=== PATIENT | male | born 1945 | race Caucasian/White ===

== ENCOUNTER → 2020-10-17 13:11 | Outpatient (BNVA) | payer MEDICARE, SELFPAY | PROVIDERS: PCP Family Medicine; Visit Provider Surgery | DX: L72.3 Sebaceous cyst (principal) | CPT/HCPCS: 99212 ==

== ENCOUNTER 2020-11-14 07:47 | Outpatient (REF) | payer MEDICARE, SELFPAY ==
[2020-11-14 07:54] VITALS: BMI 25.7
[2020-11-14 07:55] VITALS: BP 159/78; PULSE 60; RESP 16; TEMP 36.2; O2SAT 97
--- NOTE | 2020-11-14 07:58 | MHC.SHP ---
Pre-Procedural Eval Section A The patient is an INPATIENT: No Changes since office visit: Yes Patient answered all questions; No Cold of Flu in the past 2 weeks, No New Medical Problems and No Changes in Medication The History & Physical has been completed within 30 days and I have reviewed it.: Yes Section B Chief Complaint: Sebaceous cyst Allergies: Allergies Allergy/AdvReac Type Severity Reaction Status Date / Time No Known Allergies Allergy Unverified 02/08/20 15:51 [No Known Allergies*] Plan Diagnosis/Plan: Unchanged I have reviewed the history and physical and performed a pertinent physical examination on my patient. No changes have occurred unless specified.
--- NOTE | 2020-11-14 08:35 | W.PM.OPN ---
Operative Note Operative Note Date of Service: 11/14/20 Narrative: Preoperative diagnosis: Epidermal inclusion cyst right posterior neck Postoperative diagnosis: Same Procedure: Excision of epidermal inclusion cyst right posterior neck Surgeon: Irwin Mosqueda MD Labor Employment Associate: No physician Anesthesia: Local Indications for procedure: 75-year-old male patient with enlarging sebaceous cyst of the posterior right neck Operative findings: 2 cm sebaceous cyst without evidence of infection Specimen: Sebaceous cyst posterior right neck Estimated blood loss: 5 mL Complications: None Procedure details: Patient was brought to the minor surgery suite placed in a left lateral decubitus position. The site of surgery was confirmed by the patient and informed consent was confirmed. Skin was prepped with Betadine and draped in a sterile fashion. Local anesthesia consisting of lidocaine 1% with epinephrine was infiltrated around the sebaceous cyst. A transverse incision was then created with a scalpel. This carried out through subcutaneous tissue. Sharp dissection was then used to dissect around the cyst wall. The lesion was completely excised and sent to pathology for further examination. Hemostasis was assured using light pressure. Wounds were then irrigated and suctioned dry. Dermis was reapproximated using interrupted 3-0 Polysorb sutures. Skin was closed using interrupted 4-0 nylon sutures. Sterile dressings consisting of a 2 x 2 gauze and Tegaderm were then applied. The patient tolerated the procedure well. He was discharged to home in stable condition.
== END 2020-11-14 07:48 | disposition home or self-care (01) ==
LOC: HO.MS 07:47
PROVIDERS: PCP Family Medicine; Visit Provider Surgery
PROC: (CPT 11422; principal; 2020-11-14 08:00)
DX: L72.0 Epidermal cyst (principal); R89.9 Unspecified abnormal finding in specimens from other organs, systems and tissues; L98.9 Disorder of the skin and subcutaneous tissue, unspecified; I10 Essential (primary) hypertension; Z79.899 Other long term (current) drug therapy; Z85.46 Personal history of malignant neoplasm of prostate; Z87.891 Personal history of nicotine dependence
CPT/HCPCS: 11422; 12041; 88304

== ENCOUNTER → 2020-11-22 08:57 | Outpatient (BNVA) | payer MEDICARE, SELFPAY | PROVIDERS: PCP Family Medicine; Visit Provider Surgery | DX: Z48.817 Encounter for surgical aftercare following surgery on the skin and subcutaneous tissue (principal); Z87.2 Personal history of diseases of the skin and subcutaneous tissue | CPT/HCPCS: 99212 ==

== ENCOUNTER → 2021-09-18 07:38 | Outpatient (REF) | payer MEDICARE, SELFPAY ==
--- NOTE | 2021-09-18 07:42 | CA_ITS ---
Transthoracic Echocardiogram Patient (Last, First, Middle): Shmuel Cortez, Gender: Male Date of : 1945 Age: 76 Procedure Date: 09/18/2021 Procedure Type: Transthoracic Echocardiogram Location: OP Height: 182.88 cm Weight: 87.09 kg BSA: 2.09 m2 Heart Rate: bpm BP: 140 / 70 mmHg Certified Fire Investigator: ELIZA Referring MD: Kris Aguilera MD Symptoms: R01,1 NEW DIASTILIC MURMUR Study Quality: Fair ECG Rhythm: Sinus Conclusions: - The left ventricular systolic function is low normal. The visually estimated ejection fraction is between 50-55%. - There is mild to moderate aortic valve regurgitation. - There is mild dilatation of the sinuses of Valsalva measuring 4.37 cm and moderate dilatation of the ascending aorta measuring 4.60 cm. Findings Left Ventricle Normal left ventricular cavity size. There is mildly increased left ventricular wall thickness. The left ventricular systolic function is low normal. The visually estimated ejection fraction is between 50-55%. There is no evidence of regional wall motion abnormalities. Evidence suggests grade I (mild) diastolic dysfunction. Right Ventricle Normal right ventricular cavity size and systolic function. Atria The left atrium is mildly dilated. The right atrium is normal in size. Aortic Valve There is a normal trileaflet aortic valve. There is mild calcification of the aortic valve. There is no aortic valve stenosis. There is mild to moderate aortic valve regurgitation. Mitral Valve The mitral valve appears normal. There is trace mitral valve regurgitation. There is no mitral valve stenosis. Pulmonic Valve The pulmonic valve is likely normal. Tricuspid Valve Normal tricuspid valve structure. There is mild tricuspid valve regurgitation. The right ventricular systolic pressure is 35 mmHg. Top normal RVSP. Great Vessels The aortic arch is normal in size. There is mild dilatation of the sinuses of Valsalva measuring 4.37 cm and moderate dilatation of the ascending aorta measuring 4.60 cm. Venous The inferior vena cava is normal in size and collapses greater than 50% with inspiration. Pericardium/Pleural There is no evidence of pericardial effusion. Prior Study Comparison No prior study available for comparison. Measurements 2D Linear Measurements IVSd: 1.23 0.6-0.9/0.6-1.0 cm LVIDd: 4.92 3.9-5.3/4.2-5.9 cm LVIDd Index: 2.35 2.4-3.2/2.2-3.1 cm/m2 LVIDs: 3.76 2.0-3.6 cm LVPWd: 1.23 0.7-1.1 cm LA Diam: 4.10 2.7-3.8/3.0-4.0 cm LAIDs Index: 1.96 1.5-2.3 cm/m2 LV Mass: 294.17 67-162/88-224 g LV Mass Index: 140.75 43-95/49-115 g/m2 LVOT Diam: 2.40 3.0+(-)1.3 cm 2D Systolic Function EF 4C: 52.20 >55% EF 2C: 62.40 >55% EF BiP: 57.10 >55% Mitral Valve MV Pk E: 0.57 MV PK A: 0.67 MV Decel Time: 294.00 E/A: 0.80 E'Lateral: 4.90 E'Medial: 4.90 E/E' Med: 11.60 E/E' Lat: 11.60 PHT: 86.00 MVA PHT: 2.56 Decel [place]: 1.92 Aortic Valve AoV Pk Arnaldo: 1.71 AoV Mn Arnaldo: 1.01 AoV VTI: 0.39 AoV Pk Grad: 12.00 Aov Mn Grad: 5.00 RUDDY Cont.VTI: 3.51 LVOT LVOT Pk Arnaldo: 1.09 LVOT Mn Arnaldo: 0.74 LVOT VTI: 0.30 LVOT Pk Grad: 5.00 LVOT Mn Grad: 3.00 LVOT Diam: 2.40 LVOT Area: 4.52 Diastolic Function MV Pk E: 0.57 MV Pk A: 0.67 E/A: 0.80 E'Medial: 4.90 E/E' Med: 11.60 E' Laterial: 4.90 E/E' Lat: 11.60 Right Ventricle TAPSE (mm): 26.90 TVS' Arnaldo: 14.70 Tricuspid Valve TR Pk Arnaldo: 2.84 TR Pk Grad: 32.00 RA Press: 3.00 RVSP: 35.00 Great Vessels Aorta Sinus of Valsalva: 4.37 2.0-3.[address] Ridge: 3.54 1.7-3.4 cm Ao Asc: 4.60 2.1-3.4 cm Ao Arch: 3.10 Updated in Other Vendor System with Status of Final Lauri Velez MD electronically signed on 09/19/2021 4:52:41 PM with status of Final
== END ==
LOC: HO.CARD 07:38
PROVIDERS: PCP Family Medicine; Visit Provider Family Medicine
DX: R01.1 Cardiac murmur, unspecified (principal)
CPT/HCPCS: 93306

== ENCOUNTER 2022-01-06 16:38 | Outpatient (REF) | payer MEDICARE, SELFPAY ==
[2022-01-06 16:51] LABS: MANUAL DIFF FLAG NO
[2022-01-06 17:03] LABS: Basophils Percent Auto 0.4 % (0-2); Eosinophils Absolute Auto 0.4 X10*3/uL (0.0-0.4); Eosinophils Percent Auto 4.4 % (0-4); Hematocrit 39.8 % (42.0-52.0); Hemoglobin 13.6 g/dl (14.0-18.0); Imm Gran Abs Auto 0.03 X10*3/uL (0.00-0.03); Imm Gran Pct Auto 0.4 % (0.0-0.4); Lymphocytes Absolute Auto 1.4 X10*3/uL (1.2-4.9); Lymphocytes Percent Auto 16.5 % (20-40); Mean Corpuscular HGB Conc 34.2 g/dl (31.0-36.0); Mean Corpuscular Hemoglobin 31.6 pg (27.0-33.0); Mean Corpuscular Volume 92.3 fL (80.0-98.0); Mean Platelet Volume 9.4 fL (9.4-12.4); Monocytes Absolute Auto 0.9 X10*3/uL (0.1-1.2); Monocytes Percent Auto 10.9 % (2-11); Neutrophils Absolute Auto 5.7 x10*3/uL (2.0-8.3); Neutrophils Percent Auto 67.4 % (45-73); Platelet Count 241 X10*3/uL (160-400); Red Blood Count 4.31 X10*6/uL (4.60-5.80); Red Cell Distribution Width 15.2 % (11.0-16.0); White Blood Count 8.5 X10*3/uL (4.8-10.8)
[2022-01-06 17:40] LABS: Erythrocyte Sedimentation Rate 5 MM/HR (0-15)
== END 2022-01-06 16:39 | disposition home or self-care (01) ==
LOC: HO.LAB 16:38
PROVIDERS: PCP Family Medicine; Visit Provider Family Medicine
DX: K62.5 Hemorrhage of anus and rectum (principal); K52.9 Noninfective gastroenteritis and colitis, unspecified
CPT/HCPCS: 36415; 82378; 85025; 85652

== ENCOUNTER 2023-02-18 13:55 | Outpatient (REF) | payer MEDICARE, SELFPAY ==
--- NOTE | ~2023-02-18 | XR_ITS ---
EXAMINATION: XR LUMBOSACRAL SPINE CLINICAL INFORMATION: Lower back pain. COMPARISON: None available. TECHNIQUE: AP and lateral views of the lumbar spine and lateral view of the lumbosacral junction. FINDINGS: There is bony demineralization. At L2-L3, there is moderate disc space narrowing, with a 4 mm retrolisthesis. At L3-L4, there is mild posterior disc space narrowing and a 4 mm retrolisthesis. The remaining disc spaces are relatively well-maintained. No acute fracture or spondylolisthesis is seen. This multi-level thoracolumbar spondylosis. The posterior elements are intact. There is facet arthropathy at L5-S1. There are aortoiliac atherosclerotic calcifications. XR/XR lumbar spine 2-3V IMPRESSION: 1. There is moderate degenerative disc disease at L2-L3 and L3-L4. 2. No acute fracture or spondylolisthesis is seen. 3. There is multi-level thoracolumbar spondylosis. 4. There is facet arthropathy at L5-S1.
== END 2023-02-18 13:56 | disposition home or self-care (01) ==
LOC: HO.XRAY 13:55
PROVIDERS: PCP Family Medicine; Visit Provider Family Medicine
DX: M54.50 Low back pain, unspecified (principal)
CPT/HCPCS: 72100

== ENCOUNTER → 2023-10-21 09:57 | Outpatient (REF) | payer MEDICARE, SELFPAY ==
--- NOTE | 2023-10-21 10:00 | CA_ITS ---
Transthoracic Echocardiogram Patient (Last, First, Middle): Shmuel Cortez, Gender: Male Date of : 1945 Age: 78 Procedure Date: 10/21/2023 Procedure Type: Transthoracic Echocardiogram Location: OP Height: 182.88 cm Weight: 87.09 kg BSA: 2.09 m2 Heart Rate: bpm BP: 130 / 75 mmHg [employer] Operator: NAEL Referring MD: Kris Aguilera MD Symptoms: I35.1 NON RHEU AV INSUFF Study Quality: Adequate ECG Rhythm: Sinus Conclusions: - The left ventricular systolic function is normal. The calculated ejection fraction is 59% by biplane method. - No obvious valvular pathology seen on this study. - There is mild dilatation of the sinuses of Valsalva measuring 4.43 cm, moderate dilatation of the ascending aorta measuring 4.70 cm, and mild dilatation of the aortic arch measuring 4.20 cm. Findings Left Ventricle Normal left ventricular cavity size. There is mildly increased left ventricular wall thickness. The left ventricular systolic function is normal. The calculated ejection fraction is 59% by biplane method. There is no evidence of regional wall motion abnormalities. Diastolic function is normal for age. Right Ventricle Normal right ventricular cavity size and systolic function. Atria Mild biatrial enlargement. Aortic Valve There is mild calcification of the aortic valve. There is no aortic valve stenosis. There is mild aortic valve regurgitation. Mitral Valve The mitral valve appears normal. There is no mitral valve regurgitation. There is no mitral valve stenosis. Pulmonic Valve The pulmonic valve is likely normal. Tricuspid Valve There is trace tricuspid valve regurgitation. There is no evidence of pulmonary hypertension. Great Vessels There is mild dilatation of the sinuses of Valsalva measuring 4.43 cm, moderate dilatation of the ascending aorta measuring 4.70 cm, and mild dilatation of the aortic arch measuring 4.20 cm. Venous The inferior vena cava is normal in size and collapses greater than 50% with inspiration. Pericardium/Pleural There is no evidence of pericardial effusion. Prior Study Comparison Changes noted compared to prior study dated: 09/18/2021. slight increase in aortic dilatation. Recommendations, Care & Conclusions No obvious valvular pathology seen on this study. Measurements 2D Linear Measurements IVSd: 1.21 0.6-0.9/0.6-1.0 cm LVIDd: 5.46 3.9-5.3/4.2-5.9 cm LVIDd Index: 2.61 2.4-3.2/2.2-3.1 cm/m2 LVIDs: 3.83 2.0-3.6 cm LVPWd: 1.14 0.7-1.1 cm LA Diam: 3.50 2.7-3.8/3.0-4.0 cm LAIDs Index: 1.67 1.5-2.3 cm/m2 LV Mass: 326.15 67-162/88-224 g LV Mass Index: 156.05 43-95/49-115 g/m2 LVOT Diam: 2.40 3.0+(-)1.3 cm 2D Systolic Function EF 4C: 66.00 >55% EF 2C: 51.40 >55% EF BiP: 58.50 >55% Mitral Valve MV Pk E: 0.44 MV PK A: 0.76 MV Decel Time: 330.00 E/A: 0.60 E'Lateral: 5.11 E'Medial: 4.35 E/E' Med: 10.10 E/E' Lat: 8.60 PHT: 97.00 MVA PHT: 2.27 Decel [place]: 1.33 Aortic Valve AoV Pk Arnaldo: 1.72 AoV Mn Arnaldo: 1.13 AoV VTI: 0.38 AoV Pk Grad: 12.00 Aov Mn Grad: 6.00 RUDDY Cont.VTI: 3.43 LVOT LVOT Pk Arnaldo: 1.33 LVOT Mn Arnaldo: 0.86 LVOT VTI: 0.29 LVOT Pk Grad: 7.00 LVOT Mn Grad: 3.00 LVOT Diam: 2.40 LVOT Area: 4.52 Diastolic Function MV Pk E: 0.44 MV Pk A: 0.76 E/A: 0.60 E'Medial: 4.35 E/E' Med: 10.10 E' Laterial: 5.11 E/E' Lat: 8.60 Right Ventricle TAPSE (mm): 18.40 TVS' Arnaldo: 13.30 Tricuspid Valve TR Pk Arnaldo: 2.39 TR Pk Grad: 23.00 RA Press: 3.00 RVSP: 26.00 Great Vessels Aorta Sinus of Valsalva: 4.43 2.0-3.[address] [place]: 3.63 1.7-3.4 cm Ao Asc: 4.70 2.1-3.4 cm Ao Arch: 4.20 Updated in Other Vendor System with Status of Final Lauri Velez MD electronically signed on 10/22/2023 11:04:04 AM with status of Final
== END ==
LOC: HO.CARD 09:57
PROVIDERS: PCP Family Medicine; Visit Provider Family Medicine
DX: I35.1 Nonrheumatic aortic (valve) insufficiency (principal)
CPT/HCPCS: 93306

== ENCOUNTER → 2023-10-21 10:00 | Outpatient (BNV) | payer MEDICARE, SELFPAY | PROVIDERS: PCP Family Medicine; Visit Provider Internal Medicine | DX: I35.1 Nonrheumatic aortic (valve) insufficiency (principal); I35.8 Other nonrheumatic aortic valve disorders; I77.810 Thoracic aortic ectasia | CPT/HCPCS: 93306 ==

== ENCOUNTER 2024-05-22 13:51 | Outpatient (REF) | payer MEDICARE, SELFPAY ==
[2024-05-22 14:03] LABS: MANUAL DIFF FLAG NO
[2024-05-22 15:06] LABS: Basophils Percent Auto 0.4 % (0-2); Eosinophils Absolute Auto 0.3 X10*3/uL (0.0-0.4); Eosinophils Percent Auto 3.8 % (0-4); Hematocrit 37.9 % (42.0-52.0); Hemoglobin 12.8 g/dl (14.0-18.0); Imm Gran Abs Auto 0.05 X10*3/uL (0.00-0.03); Imm Gran Pct Auto 0.6 % (0.0-0.4); Lymphocytes Absolute Auto 1.3 X10*3/uL (1.2-4.9); Lymphocytes Percent Auto 15.2 % (20-40); Mean Corpuscular HGB Conc 33.8 g/dl (31.0-36.0); Mean Corpuscular Volume 94.8 fL (80.0-98.0); Mean Platelet Volume 9.7 fL (9.4-12.4); Monocytes Absolute Auto 0.9 X10*3/uL (0.1-1.2); Monocytes Percent Auto 10.6 % (2-11); Neutrophils Absolute Auto 5.9 x10*3/uL (2.0-8.3); Neutrophils Percent Auto 69.4 % (45-73); Platelet Count 261 X10*3/uL (160-400); Red Cell Distribution Width 14.1 % (11.0-16.0); White Blood Count 8.4 X10*3/uL (4.8-10.8)
[2024-05-22 15:38] LABS: Iron 48 mcg/dL (45-160); Percent Iron Saturation 13 % (15-50); Total Iron Binding Capacity 357 mcg/dL (228-428); Unsaturated Iron Binding 309 ug/dL
[2024-05-22 15:52] LABS: Ferritin 14 ng/mL (20-250)
[2024-05-22 16:05] LABS: Folate 15.8 ng/mL (> or = 4.0); Vitamin B12 410 pg/mL (200-900)
== END 2024-05-22 13:52 | disposition home or self-care (01) ==
LOC: HO.LAB 13:51
PROVIDERS: PCP Family Medicine; Visit Provider Family Medicine
DX: D64.9 Anemia, unspecified (principal)
CPT/HCPCS: 36415; 82607; 82728; 82746; 83540; 85025

== ENCOUNTER 2025-01-29 14:17 | Outpatient (AMB) | payer MEDICARE, SELFPAY ==
--- NOTE | 2025-01-29 14:21 | A.OFFPC_ITS ---
Vital Signs 01/29/25 14:28 Height 6 ft Weight 86.183 kg BMI 25.8 BP 128/66 Pulse 65 Pulse Source Pulse Oximeter Temp 97.4 F Temp Source Temporal Artery Scan Pulse Oximetry (%) 96 Oxygen Delivery Method Room Air Intake Visit Reasons: 4 MONTH FOLLOW UP-MATT PT Gas Pipe Layer Required: No Accompanied by: Self / Same As Patient Allergies No Known Allergies (No Known Allergies*) Allergy (Unverified 01/29/25 14:25) Medication List - Last Reconciled 01/29/25 by JJ Gupta amlodipine 10 mg PO DAILY coenzyme Q10 (Ultra CoQ10) 75 mg PO DAILY hydralazine 25 mg PO TID losartan 100 mg PO DAILY metoprolol succinate ER 50 mg PO DAILY metronidazole 0.75% appl topical BID multivitamin with iron 1 tab PO DAILY omeprazole 20 mg PO DAILY potassium chloride ER 40 mEq PO DAILY simvastatin 20 mg PO QPM Tobacco use date assessed: 01/29/25 Fall risk assessment: No Falls in past year Last assessed Fall Risk: 01/29/25 Dental Screening Dental Screen Date: 01/29/25 Did you have a dental visit in the last 12 months?: Yes Did you have a dental problem in the last 6 months where you did not have access to dental care?: No Was dental information given to patient?: No HPI HPI Comments History of Present Illness Details 7-year-old male with history of hyperten marilee, iron deficiency anemia, aortic valve insufficiency, ascending aortic dilatation, hypercholesterolemia, GERD, history of prostate cancer presenting to the office today for management of chronic conditions and to establish care. Previously followed with Dr. Aguilera, last seen about 3 months ago HTN- bp at home wnl. In office 128/66. Compliant with losartan 100 mg daily, metoprolol 50 mg ER, hydralazine 25 mg t.i.d. and amlodipine 10 mg daily VALARIE-mild stable anemia. Not taking iron supplements Hypercholesterolemia-on simvastatin 20 mg nightly and Co Q10 GERD-on omeprazole Ascending aortic dilatation-last echo showed 4.3cm dilitation Concerns: None ROS: General: No fevers, malaise, unintentional weight loss HEENT: No blurred vision, diplopia. No sore throat, nasal congestion, rhinorrhea, sinus pain, ear pain Cardiovascular: No chest pain, palpitations, or leg edema Respiratory: No shortness of breath, wheezing, cough GI: No abdominal pain, nausea, vomiting, diarrhea, constipation, melena, hematochezia : No dysuria, hematuria, increased urinary frequency, decreased urinary output MSK: No myalgia, back pain Neuro: No headaches, weakness, paresthesias Skin: No rashes or lesions EXAM: Constitutional - Awake and Alert, No apparent distress Eyes - PERRL Cardiovascular - S1S2, RRR, No edema Respiratory - Normal lung expansion, Normal respiratory effort, No respiratory distress, CTA bilaterally Extremities - no calf tenderness bilaterally, no swelling Skin - Warm/Dry Neurological - Alert & oriented x3 Psychological - Appropriate affect [facility] Medical History (Updated 01/29/25 @ 14:41 by JJ Gupta) Ascending aortic aneurysm Aortic valve insufficiency Ventricular premature depolarization Hypercholesterolemia Dorsalgia Iron deficiency anemia Hiatal hernia Squamous cell carcinoma GERD (gastroesophageal reflux disease) Hypertension Prostate cancer Surgical History History of prostate surgery Family History Mother Colon cancer Social History Housing: House Alcohol intake: current Alcohol intake frequency: holidays/special occasions only Alcohol type: wine Patient Tobacco Use Status: Former Tobacco user (Quite in 1977) e-Cigarette/Vaping Use: Never Used service: No Current occupational status: retired Cognitive needs: No Hearing needs: No Vision needs: Yes (Rx glasses) Questionnaire PHQ-9 Over the last 2 weeks, how often have you been bothered by any of the following problems? 1. Little interest or pleasure in doing things: not at all 2. Feeling down, depressed, or hopeless: not at all 3. Trouble falling or staying asleep, or sleeping too much: not at all 4. Feeling tired or having little energy: not at all 5. Poor appetite or overeating: not at all 6. Feeling bad about yourself - or that you are a failure or have let yourself or your family down: not at all 7. Trouble concentrating on things, such as reading the newspaper or watching television: not at all 8. Moving or speaking so slowly that other people could have noticed. Or the opposite - being so fidgety or restless that you have been moving around a lot more than usual: not at all 9. Thoughts that you would be better off or of hurting yourself in some way: not at all Total score: 0 Depression Screening Interpretation: Negative Depression Screening Done: Yes 80564 - PHQ-9 Billing: Yes Source: Developed by Drs. Jean Lambert, Halie Cardoza, Harjinder Naranjo and colleagues, with an educational surendra from [employer]. Thrive Questionnaire I am a: Patient What is your living situation today?: I have a steady place to live Within the past 12 months, did the food you bought not last and you didn't have the money to get more?: Never true Within the past 12 months, did you worry whether your food would run out before you got money to buy more?: Never true Do you have trouble paying for medicines?: No Do you have trouble getting transportation to medical appointments?: No Do you have trouble paying your heating and electricity bill?: No Do you have trouble taking care of your child, family member or friend?: No Do you have trouble with day-to-day activities such as bathing, preparing meals, shopping, managing finances, etc.?: No Are you currently unemployed and looking for a job?: No Are you interested in more education?: No Currently or been in a relationship where the following occur: No concerns reported THRIVE Score: 0 LEONCIO-7 AMB Questionnaire LEONCIO-7 Feeling nervous, anxious, or on edge: 0 = Not at all Not being able to stop or control worryin = Not at all Worrying too much about different things: 0 = Not at all Trouble relaxin = Not at all Being so restless that it is hard to sit still: 0 = Not at all Becoming easily annoyed or irritable: 0 = Not at all Feeling afraid as if something awful might happen: 0 = Not at all Total LEONCIO-7 score (0-4 normal; 5-9 mild; 10-14 moderate; 15-21 severe): 0 Source: Developed by Drs. Jean Lambert, Halie Cardoza, Harjinder Naranjo and colleagues, with an educational surendra from [employer]. LEONCIO-7 Assessment Billing LEONCIO-7 Assessment Tool: LEONCIO-7 Assessment 26134 Physical exam (Primary Care) Vital Signs: Last Vital Signs Temp 97.4 F 01/29/25 14:28 Pulse 65 01/29/25 14:28 BP 128/66 01/29/25 14:28 Pulse Ox 96 01/29/25 14:28 Oxygen Delivery Method Room Air 01/29/25 14:28 BMI result Body Mass Index 25.8 Tobacco/Smoking Status: Tobacco use Status Tobacco use date assessed 01/29/25 01/29/25 14:30 Patient Tobacco Use Status Former Tobacco user (Quite 01/29/25 14:30 in 1977) e-Cigarette/Vaping Use Never Used 01/29/25 14:30 Depression Screening Interpretation: Negative Currently or been in a relationship where the following occur: No concerns reported Coding Level of Care Code New Pt Level 4 (28078) Complex EM visit Add On G2211 Diagnoses Iron deficiency anemia D50.9 Aortic valve insufficiency I35.1 Hypertension I10 Ascending aortic aneurysm I71.21 Additional Codes PHQ-9 - 06329 - PHQ-9 Billing: Yes ([id number]) LEONCIO-7 Assessment Billing - LEONCIO-7 Assessment Tool: LEONCIO-7 Assessment 94573 ([id number]) Assessment & Plan Assessment & Plan (1) Iron deficiency anemia: Code(s): D50.9 - Iron deficiency anemia, unspecified Category: Medical Plan: CBC and iron panel ordered. Plan to be adjusted pending results (2) Aortic valve insufficiency: Code(s): I35.1 - Nonrheumatic aortic (valve) insufficiency Category: Medical Plan: No murmur heard, not seen on last echo (3) Hypertension: Code(s): I10 - Essential (primary) hypertension Category: Medical Plan: Controlled. Continue amlodipine, metoprolol, losartan, hydralazine (4) Ascending aortic aneurysm: Code(s): I71.21 - Aneurysm of the ascending aorta, without rupture Category: Medical Plan: Moderate at 4.3 cm. Echocardiogram ordered for re-evaluation Plan Follow-up in the office in 4 months, labs to be completed following visit Orders: Orders Complete Blood Count Auto Diff Today D50.9 - Iron deficiency anemia, unspe cified, E78.00 - Pure hypercholesterolemia, unspecified, I10 - Essential (primary) hypertension IRON PROFILE Today D50.9 - Iron deficiency anemia, unspecified, E78.00 - Pure hypercholesterolemia, unspecified, I10 - Essential (primary) hypertension Basic Metabolic Panel Today D50.9 - Iron deficiency anemia, unspecified, E78.00 - Pure hypercholesterolemia, unspecified, I10 - Essential (primary) hypertension Lipid Panel Today D50.9 - Iron deficiency anemia, unspecified, E78.00 - Pure hypercholesterolemia, unspecified, I10 - Essential (primary) hypertension Liver Panel Today D50.9 - Iron deficiency anemia, unspecified, E78.00 - Pure hypercholesterolemia, unspecified, I10 - Essential (primary) hypertension CA echo transthoracic complete Today I71.21 - Aneurysm of the ascending aorta, without rupture Medications: New metoprolol succinate ER 50 mg PO DAILY 90 tabs 1RF
[2025-01-29 14:28] VITALS: BP 128/66; PULSE 65; TEMP 36.3; O2SAT 96; BMI 25.8
== END 2025-01-29 15:01 | disposition home or self-care (01) ==
LOC: HO.HMCHD 14:18
PROVIDERS: PCP Family Medicine; Visit Provider Physician Assistant
DX: D50.9 Iron deficiency anemia, unspecified (principal); I35.1 Nonrheumatic aortic (valve) insufficiency; I10 Essential (primary) hypertension; I71.21 Aneurysm of the ascending aorta, without rupture

== ENCOUNTER → 2025-01-29 14:17 | Outpatient (BNVA) | payer MEDICARE, SELFPAY | PROVIDERS: PCP Family Medicine; Visit Provider Physician Assistant | DX: D50.9 Iron deficiency anemia, unspecified (principal); I35.1 Nonrheumatic aortic (valve) insufficiency; I10 Essential (primary) hypertension; I71.21 Aneurysm of the ascending aorta, without rupture; E78.00 Pure hypercholesterolemia, unspecified; K21.9 Gastro-esophageal reflux disease without esophagitis; Z79.899 Other long term (current) drug therapy; Z13.31 Encounter for screening for depression | CPT/HCPCS: 96127; 99202 ==

== ENCOUNTER → 2025-03-09 12:51 | Outpatient (REF) | payer MEDICARE, SELFPAY ==
--- NOTE | 2025-03-09 12:55 | CA_ITS ---
Transthoracic Echocardiogram Patient (Last, First, Middle): Shmuel Cortez, Gender: M Date of : 1945 Age: 79 Procedure Date: 03/09/2025 Procedure Type: Transthoracic Echocardiogram Location: OP Height: 182.88 cm Weight: 86.18 kg BSA: 2.08 m2 Heart Rate: bpm BP: 120 / 64 mmHg Airplane Rental Clerk: TO Referring MD: Liana GARDNER Symptoms: I71.21 - Aneurysm of the ascending aorta, without rupture Study Quality: Fair Conclusions: - Normal left ventricular cavity size. The left ventricular systolic function is low normal. The visually estimated ejection fraction is between 50-55%. - Normal left ventricular filling pressures. - Normal right ventricular cavity size and systolic function. - There is moderate aortic valve regurgitation. - There is mild dilatation of the sinuses of Valsalva measuring 4.34 cm and mild dilatation of the ascending aorta measuring 4.60 cm. Findings Left Ventricle Normal left ventricular cavity size. The left ventricular systolic function is low normal. The visually estimated ejection fraction is between 50-55%. There is no evidence of regional wall motion abnormalities. Abnormal diastolic function is noted. Spectral Doppler is indicative of an impaired relaxation filling pattern. Normal left ventricular filling pressures. Right Ventricle Normal right ventricular cavity size and systolic function. Atria The left atrium is normal in size. The right atrium was not well visualized. Aortic Valve There is a normal trileaflet aortic valve. There is no aortic valve stenosis. There is moderate aortic valve regurgitation. Mitral Valve The mitral valve appears normal. There is no mitral valve regurgitation. There is no mitral valve stenosis. Pulmonic Valve The pulmonic valve is normal. There is trace pulmonic valve regurgitation. Tricuspid Valve Normal tricuspid valve structure. There is trace tricuspid valve regurgitation. Normal right atrial pressure. There is no evidence of pulmonary hypertension. Great Vessels There is mild dilatation of the sinuses of Valsalva measuring 4.34 cm and mild dilatation of the ascending aorta measuring 4.60 cm. The visualized portions of the pulmonary artery and branches are normal. Venous The inferior vena cava is normal in size and collapses greater than 50% with inspiration. Pericardium/Pleural There is no evidence of pericardial effusion. Prior Study Comparison Changes noted compared to prior study dated: 10/21/2023. Moderate AR present. Measurements 2D Linear Measurements IVSd: 0.95 0.6-0.9/0.6-1.0 cm LVIDd: 5.32 3.9-5.3/4.2-5.9 cm LVIDd Index: 2.56 2.4-3.2/2.2-3.1 cm/m2 LVIDs: 3.40 2.0-3.6 cm LVPWd: 0.83 0.7-1.1 cm LA Diam: 3.80 2.7-3.8/3.0-4.0 cm LAIDs Index: 1.83 1.5-2.3 cm/m2 LV Mass: 215.48 67-162/88-224 g LV Mass Index: 103.60 43-95/49-115 g/m2 LVOT Diam: 2.40 3.0+(-)1.3 cm 2D Systolic Function EF 4C: 52.00 >55% EF 2C: 52.30 >55% EF BiP: 52.20 >55% Mitral Valve MV Pk E: 0.42 MV PK A: 0.69 MV Decel Time: 321.00 E/A: 0.60 E'Lateral: 5.87 E'Medial: 4.35 E/E' Med: 9.70 E/E' Lat: 7.20 PHT: 94.00 MVA PHT: 2.34 Decel [place]: 1.32 Aortic Valve AoV Pk Arnaldo: 1.97 AoV Mn Arnaldo: 1.28 AoV VTI: 0.37 AoV Pk Grad: 16.00 Aov Mn Grad: 8.00 RUDDY Cont.VTI: 3.19 AI Pk Arnaldo: 4.02 AI [place]: 2.76 LVOT LVOT Pk Arnaldo: 1.15 LVOT Mn Arnaldo: 0.85 LVOT VTI: 0.26 LVOT Pk Grad: 5.00 LVOT Mn Grad: 3.00 LVOT Diam: 2.40 LVOT Area: 4.52 Diastolic Function MV Pk E: 0.42 MV Pk A: 0.69 E/A: 0.60 E'Medial: 4.35 E/E' Med: 9.70 E' Laterial: 5.87 E/E' Lat: 7.20 Right Ventricle TAPSE (mm): 18.00 TVS' Arnaldo: 14.90 Tricuspid Valve TR Pk Arnaldo: 2.27 TR Pk Grad: 21.00 RA Press: 3.00 RVSP: 24.00 Great Vessels Aorta Sinus of Valsalva: 4.34 2.0-3.[address] [place]: 3.69 1.7-3.4 cm Ao Asc: 4.60 2.1-3.4 cm Ao Arch: 4.00 Updated in Other Vendor System with Status of Final Titi Oviedo MD electronically signed on 03/11/2025 8:14:47 PM with status of Final
[2025-03-09 13:07] LABS: MANUAL DIFF FLAG NO
[2025-03-09 14:07] LABS: Hematocrit 40.6 % (42.0-52.0); Hemoglobin 13.9 g/dl (14.0-18.0); Imm Gran Abs Auto 0.08 X10*3/uL (0.00-0.03); Imm Gran Pct Auto 0.9 % (0.0-0.4); Lymphocytes Absolute Auto 1.3 X10*3/uL (1.2-4.9); Mean Corpuscular HGB Conc 34.2 g/dl (31.0-36.0); Mean Corpuscular Hemoglobin 33.5 pg (27.0-33.0); Mean Corpuscular Volume 97.8 fL (80.0-98.0); NRBC Abs Auto 0.000 X10*3/uL (0.0-0.012); NRBC Pct Auto 0.0 /100WBC (0.0-0.2); Platelet Count 278 X10*3/uL (160-400); Red Blood Count 4.15 X10*6/uL (4.60-5.80); White Blood Count 9.0 X10*3/uL (4.8-10.8)
[2025-03-09 16:10] LABS: Alanine Aminotransferase 18 U/L (0-40); Albumin Level 4.1 g/dL (3.5-5.0); Alkaline Phosphatase 82 U/L (39-117); Anion Gap 12 (12-20); Aspartate Amino Transferase 25 U/L (5-37); Blood Urea Nitrogen 25 mg/dL (9-16); Calcium 9.2 mg/dL (8.4-10.2); Carbon Dioxide 20 mmol/L (22-29); Chloride 111 mmol/L (96-108); Cholesterol 141 mg/dL (<200); Estimated Glomerular Filt Rate 57; HDL Cholesterol 56 mg/dL (>40); Iron 170 mcg/dL (45-160); Percent Iron Saturation 52 % (15-50); Potassium 4.4 mmol/L (3.3-5.1); Sodium 139 mmol/L (135-145); Total Iron Binding Capacity 324 mcg/dL (228-428); Total Protein 6.5 g/dL (6.5-8.0); Triglycerides 232 mg/dL (<150); Unsaturated Iron Binding 154 ug/dL
== END ==
LOC: HO.CARD 12:51
PROVIDERS: PCP Physician Assistant; Visit Provider Physician Assistant
DX: I71.21 Aneurysm of the ascending aorta, without rupture (principal); I10 Essential (primary) hypertension; E78.00 Pure hypercholesterolemia, unspecified; D50.9 Iron deficiency anemia, unspecified
CPT/HCPCS: 36415; 80048; 80061; 80076; 83540; 85025; 93306

== ENCOUNTER → 2025-03-09 12:55 | Outpatient (BNV) | payer MEDICARE, SELFPAY | PROVIDERS: PCP Physician Assistant; Visit Provider Internal Medicine Cardiovascular Disease | DX: I35.1 Nonrheumatic aortic (valve) insufficiency (principal); I71.21 Aneurysm of the ascending aorta, without rupture | CPT/HCPCS: 93306 ==